=== PATIENT | male | born 1945 | race Caucasian/White ===

== ENCOUNTER 2018-04-27 17:19 | Emergency (ER) | payer MEDICARE ==
--- NOTE | 2018-04-27 17:47 | ED ---
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 The bleeding is only from the right nostril and has not yet resolved. Patient takes 81 mg ASA daily. - History of Current Complaint Chief Complaint: EDEpistaxis Time Seen by Provider: 04/27/18 17:28 Hx Obtained From: Patient Onset/Duration: Sudden Onset, Lasting Hours Severity: Mild - Allergies/Home Medications Allergies/Adverse Reactions: Allergies Allergy/AdvReac Type Severity Reaction Status Date / Time No Known Allergies Allergy Verified 10/18/14 10:12 Home Medications: Home Medications Losartan Potassium 100 mg PO DAILY 04/27/18 [History Confirmed 04/27/18] amLODIPine TAB* [Norvasc 5 mg TAB*] 2.5 mg PO DAILY 04/27/18 [History Confirmed 04/27/18] PMH/Surg Hx/FS Hx/Imm Hx Cardiovascular History: Reports: Hx Coronary Artery Disease Neurological History: Reports: Other Neuro Impairments/Disorders - HX OF PREVIOUS EPISODES OF LOW BACK PAIN Infectious Disease History: No Infectious Disease History: Denies: Traveled Outside the [place] in Last 30 Days - Family History Known Family History: Negative: Cardiac Disease, Diabetes - Social History Alcohol Use: Daily Alcohol Amount: 1-2/D Substance Use Type: Reports: None Smoking Status (MU): Never Smoked Tobacco Review of Systems Negative: Fever Positive: Epistaxis - Right nostril All Other Systems Reviewed And Are Negative: Yes Physical Exam - Summary Physical Exam Summary: GENERAL: Patient is a well-developed and nourished M who is lying comfortable in the stretcher. Patient is not in any acute respiratory distress. HEAD AND FACE: Normocephalic. Active bleeding from the right nostril. EYES: PERRLA, EOMI x 2. EARS: Hearing grossly intact. MOUTH: Oropharynx within normal limits. NECK: Supple, trachea is midline, no adenopathy, no JVD, no carotid bruit. CHEST: Symmetric, no tenderness at palpation LUNGS: Clear to auscultation bilaterally. No wheezing or crackles. CVS: Regular rate and rhythm, S1 and S2 present, no murmurs or gallops appreciated. ABDOMEN: Soft, non-tender. Bowel sounds are normal. No abdominal abnormal pulsations. EXTREMITIES: Full ROM in all major joints, no edema, no cyanosis or clubbing. NEURO: Alert and oriented x 3. No acute neurological deficits. Speech is normal and follows commands. SKIN: Dry and warm Triage Information Reviewed: Yes Vital Signs On Initial Exam: Initial Vitals Temp Pulse Resp BP Pulse Ox 98.4 F 85 16 176/78 97 04/27/18 17:27 04/27/18 17:27 04/27/18 17:27 04/27/18 17:27 04/27/18 17:27 Vital Signs Reviewed: Yes Procedures - Procedure Summary Procedure Summary: Packing procedure: Rhino Rocket placed in right nostril of Pt by ED Provider. Diagnostics - Vital Signs Vital Signs Temp Pulse Resp BP Pulse Ox 04/27/18 17:33 79 94 04/27/18 17:32 83 176/78 96 04/27/18 17:27 98.4 F 85 16 176/78 97 - Laboratory Result Diagrams: 04/27/18 17:23 Lab Statement: Any lab studies that have been ordered have been reviewed, and results considered in the medical decision making process. 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 A rhino rocket was placed by the ED Provider to stop the bleeding. The patient will be prescribed ABx and referred to an ENT specialist for follow up. I discussed results with patient and he reports feeling better. He is hemodynamically stable and safe for discharge. Strict return precautions given. The patient is agreeable with this plan. - Diagnoses Provider Diagnoses: Epistaxis Discharge - Sign-Out/Discharge Documenting (check all that apply): Patient Departure - Discharge - Discharge Plan Condition: Stable Disposition: HOME Prescriptions: Amoxicillin/Clavulanate TAB* [Augmentin TAB 875*] 875 mg PO BID #14 tab oxyCODONE/Acetamin 5/325 MG* [Percocet 5/325 TAB*] 1 tab PO Q6H PRN #6 tab MDD 4 PRN Reason: Pain Patient Education Materials: Nosebleed (ED) Referrals: [facility] [Provider Group] Additional Instructions: Return to ED with any new or worsening symptoms. Follow up with ENT specialist in 2-3 days. - Billing Disposition and Condition Condition: STABLE Disposition: Home - Attestation Statements Document Initiated by Dana: Yes Documenting Scribe: Andi Long Provider For Whom Dana is Documenting (Include Credential): Nikki Raman MD Scribe Attestation: Andi Mcgee, scribed for Nikki Raman MD on 04/28/18 at 1055. Scribe Documentation Reviewed: Yes Provider Attestation: The documentation as recorded by the Andi foley accurately reflects the service I personally performed and the decisions made by me, Doc Raman MD Status of Scribe Document: Viewed
[2018-04-27] MEDS ORDERED: oxyCODONE/Acetamin 5/325 MG* TAB ONE (18:06)
[2018-04-27] MEDS ORDERED: oxyCODONE/Acetamin 5/325 MG* TAB PO ONE (18:07)
[2018-04-27] MEDS ORDERED: AMLODIPINE 2.5 MG TAB (NF) PO ONE (18:11)
[2018-04-27] MEDS ORDERED: Losartan TAB* 25 MG PO ONE (18:11)
[2018-04-27] MEDS ORDERED: Amoxicillin/Clavulanate TAB* 875 MG PO ONE (18:13)
[2018-04-27] MEDS ORDERED: amLODIPine TAB* 5 MG PO ONE (18:16)
[2018-04-27] MEDS ORDERED: amLODIPine TAB* 5 MG ONE (18:18)
[2018-04-27 18:28] LABS: ABS Basophils 0 10^3/ul (0-0.2); ABS Eosinophils 0.2 10^3/ul (0-0.6); ABS Monocytes 0.5 10^3/ul (0-0.8); ABS Neutrophils 5.3 10^3/ul (1.5-7.7); ABS Nucleated RBC 0 10^3/ul; Eosinophil % 1.9 %; Hematocrit 43 % (42-52); Hemoglobin 14.7 g/dl (14.0-18.0); Lymphocyte % 25.2 %; Mean Corpuscular HGB Conc 34 g/dl (31-36); Mean Corpuscular Hemoglobin 30 pg (27-31); Mean Corpuscular Volume 88 fL (80-94); Mean Platelet Volume 7.4 fL (7.4-10.4); Nucleated Red Blood Cells % 0; Platelet Count 222 10^3/ul (150-450); Red Cell Distribution Width 14 % (10.5-15); White Blood Count 8.1 10^3/ul (3.5-10.8)
[2018-04-27 18:33] VITALS: BP 181/92
[2018-04-27 18:39] LABS: Activated Partial Thrombo Time 32.2 seconds (26.0-36.3); INR 0.94 (0.77-1.02)
== END 2018-04-27 18:55 | disposition home or self-care (01) ==
LOC: ED 17:19
DX: R04.0 Epistaxis (principal); I25.10 Atherosclerotic heart disease of native coronary artery without angina pectoris
CPT/HCPCS: 36415; 85025; 85610; 85730; 86850; 86900; 86901; 99283; A9270-GY

== ENCOUNTER 2018-05-05 21:45 | Emergency (ER) | payer MEDICARE ==
--- OUTSIDE RECORDS SUMMARY | 2018-05-05 21:54 | XMS REPORT | Continuity of Care Document ---
:1945 External Reference #:[id number] Author Name Juan Yip MD Address [address] [place] [address] Care Team Providers Name Role Phone Rachell Teresa M.D. Primary Care Physician Unavailable Payers Type Date Identification Numbers Payment Provider Subscriber Effective: Policy Number: [id number] [employer] Medicare Ppo Jayant Higginbotham 2018 Group Number: [id number] [facility] [id number] Group Name: [id number] [place] [address] PayID: [id number] Advance Directives Description No Information Available Problems Date Description Provider Status Onset: 05/02/2018 Essential hypertension Juan Yip MD Active Onset: 05/02/2018 Bleeding from nose Juan Yip MD Active Onset: 05/02/2018 Chronic rhinitis Juan Yip MD Active Family History Date Family Member(s) Problem(s) Comments General Diabetes Social History Type Date Description Comments Sex Unknown Occupation Retired Tobacco Use Start: Unknown Never Smoked Cigarettes Tobacco Use Start: Unknown Never Smoked Cigars Tobacco Use Start: Unknown Never Smoked A Pipe Smokeless Tobacco Never Used Smokeless Tobacco ETOH Use Currently occasionally consumes alcohol Allergies, Adverse Reactions, Alerts Description No Known Drug Allergies Medications Medication Date Status Form Strength Qnty SIG Indications Ordering Provider Amlodipine Active Tablets 2.5mg Take One Unknown Besylate 000 Tablet By Mouth Every Day Losartan 0 Active Tablets 100mg Take One Unknown Potassium 000 Tablet By Mouth Every Day Finasteride 0 Active Tablets 5mg Take One Unknown 000 Tablet By Mouth Every Day Aspir-[address] 81mg 1 by Unknown 000 mouth every day Immunizations Description No Information Available Vital Signs Date Vital Result Comment 05/02/2018 8:39am Weight 228.00 lb Weight 103.421 kg Height 67 inches 5'7" Height in cm's 170.2 cm BMI (Body Mass Index) 35.7 kg/m2 Results Description No Information Available Procedures Date Code Description Status 05/02/2018 68546 Control Nasal Hemorrhage (Extensive Cautery/Packing) Any Completed Method Encounters Type Date Location Provider Dx Diagnosis Office Visit 05/02/2018 Rosalian Sosa Ashu J31.0 Chronic rhinitis 8:30a 04/09/07 R04.0 Epistaxis Plan of Treatment 05/02/2018 - Juan Yip MDJ31.0 Chronic pucklcklQ32.0 EpistaxisComments: The patient was treated with silver nitrate cautery. We discussed that a scab will form and may bleed when it comes off in a week. The patient was instructed to let it mature and fall off on its own. I have given the patient our epistaxis instruction sheet, which includes information on how to carefor the nose at this time, and if there is further bleeding.
--- NOTE | 2018-05-05 22:13 | ED ---
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 Pt was seen in [facility] for epistaxis on 04/27/18. He followed up with ENT on 05/02 and his nose was cauterized. Per , the ENT provider told the patient, he only had one bleed. Tonight, patient was watching TV and when he looked at his , his nose was bleeding from the R nostil. His states that last week he was bleeding "in sheets" but tonight it was more intermittent and had clots in it. Pt takes daily baby aspirin. 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 - Onset/Duration: Sudden Onset, Still Present Severity: Mild - Allergies/Home Medications Allergies/Adverse Reactions: Allergies Allergy/AdvReac Type Severity Reaction Status Date / Time No Known Allergies Allergy Verified 05/05/18 21:47 Home Medications: Home Medications Finasteride TAB* [Proscar TAB*] 5 mg PO DAILY 05/05/18 [History Confirmed ] PMH/Surg Hx/FS Hx/Imm Hx Previously Healthy: No - EPISTAXIS Cardiovascular History: Reports: Hx Coronary Artery Disease Neurological History: Reports: Other Neuro Impairments/Disorders - HX OF PREVIOUS EPISODES OF LOW BACK PAIN Infectious Disease History: No Infectious Disease History: Denies: Traveled Outside the [place] in Last 30 Days - Family History Known Family History: Negative: Cardiac Disease, Diabetes - Social History Occupation: Retired Lives: With Family Alcohol Use: Daily Alcohol Amount: 1-2/D Hx Substance Use: No Substance Use Type: Reports: None Hx Tobacco Use: No Smoking Status (MU): Never Smoked Tobacco Review of Systems Negative: Fever Positive: Epistaxis All Other Systems Reviewed And Are Negative: Yes Physical Exam - Summary Physical Exam Summary: Appearance: Well-appearing, Well-nourished, lying in bed comfortable Skin: Warm, dry, no obvious rash Eyes: sclera anicteric, no conjunctival pallor ENT: mucous membranes moist. Fresh clot in R nare. Neck: deferred Respiratory: No signs of respiratory distress Cardiovascular: Appears well perfused, pulses are nml Abdomen: deferred Musculoskeletal: Moving all 4 extremities without obvious discomfort Neurological: Awake and alert, mentation is normal, speech is fluent and appropriate Psychiatric: affect is normal, does not appear anxious or depressed Triage Information Reviewed: Yes Vital Signs On Initial Exam: Initial Vitals Temp Pulse Resp BP Pulse Ox 97.8 F 88 16 163/85 95 05/05/18 21:45 05/05/18 21:45 05/05/18 21:45 05/05/18 21:45 05/05/18 21:45 Vital Signs Reviewed: Yes Diagnostics - Vital Signs Vital Signs Temp Pulse Resp BP Pulse Ox 05/05/18 21:45 97.8 F 88 16 163/85 95 - Laboratory Lab Statement: Any lab studies that have been ordered have been reviewed, and results considered in the medical decision making process. 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 Pt was seen for same on 04/27/18. He followed up with ENT on 05/02 and his nose was cauterized. Tonight, patient was watching TV and when his nose started bleeding from the R nostil. His states that last week he was bleeding "in sheets" but tonight it was more intermittent and had clots in it. Pt takes daily baby aspirin. The patient was noted to have fresh clots. He was unable to blow out the clots which struck me as somewhat odd. After anesthetizing the nose, and using suction to clear blood, I was able to observe what appeared to be some type of foreign material deep in the right nare. I was only able to extract a small amount of this with forceps and I'm not sure what it is. Nonetheless, the bleeding persisted, and I was forced to put any 7.5 cm Rhino Rocket and after inflating it with approximately 6 mL of air, the bleeding appeared to stop. Will discharge patient home to f/u with Dr. Yip, ENT, tomorrow AM. - Diagnoses Provider Diagnoses: Epistaxis, Nasal foreign body Discharge - Sign-Out/Discharge Documenting (check all that apply): Patient Departure - DC - Discharge Plan Condition: Good Disposition: HOME Patient Education Materials: Nosebleed (ED) Referrals: Juan Yip MD [Medical Doctor] - Additional Instructions: There appears to be some foreign material deep in the back of the right side of the nose. I was able to remove some of it but there seems to be more. Contact Dr. Yip first thing in the morning, as he will need to take another look at this situation. - Billing Disposition and Condition Condition: GOOD Disposition: Home - Attestation Statements Document Initiated by Dana: Yes Documenting Scribe: Urmila Rosado Provider For Whom Dana is Documenting (Include Credential): Dr. Cirilo Peraza MD Scribe Attestation: I, Urmila Rosado, scribed for Dr. Cirilo Peraza MD on 05/06/18 at 0519. Scribe Documentation Reviewed: Yes Provider Attestation: The documentation as recorded by the Urmila foley accurately reflects the service I personally performed and the decisions made by me, Dr. Cirilo Peraza MD Status of Scribe Document: Viewed
[2018-05-05] MEDS ORDERED: Lidocaine/Epineph/Tetraca (NF) 4 ML BTL TOPICAL ONE (22:16)
[2018-05-05] MEDS ORDERED: Lidocaine/Epineph/Tetraca GEL* 3 ML GEL IN SYR ONE (22:27)
[2018-05-05 23:28] VITALS: BP 160/65
== END 2018-05-05 23:47 | disposition home or self-care (01) ==
LOC: ED 21:45
DX: R04.0 Epistaxis (principal); T17.1XXA Foreign body in nostril, initial encounter; I25.10 Atherosclerotic heart disease of native coronary artery without angina pectoris; X58.XXXA Exposure to other specified factors, initial encounter; Y92.9 Unspecified place or not applicable; Z79.82 Long term (current) use of aspirin
CPT/HCPCS: 99282; A9270-GY